=== PATIENT | female | born 1970 | race Caucasian/White ===

== ENCOUNTER → 2020-06-23 15:15 | Outpatient (BNVA) | payer MEDICAID, SELFPAY | PROVIDERS: Family Provider Family Medicine; PCP Family Medicine; Referring Provider Orthopaedic Surgery; Visit Provider Orthopaedic Surgery | DX: Z11.59 Encounter for screening for other viral diseases (principal); Z01.818 Encounter for other preprocedural examination | CPT/HCPCS: 87635 ==

== ENCOUNTER → 2020-10-27 10:51 | Outpatient (BNVA) | payer MEDICAID, SELFPAY | PROVIDERS: Family Provider Family Medicine; PCP Family Medicine; Visit Provider Specialist | DX: F44.4 Conversion disorder with motor symptom or deficit (principal); Z87.891 Personal history of nicotine dependence | CPT/HCPCS: 99205 ==

== ENCOUNTER 2020-11-16 10:23 | Outpatient (CLI) | payer MEDICAID, SELFPAY ==
--- NOTE | 2020-11-16 11:00 | MR_ITS ---
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 TECHNIQUE: Diffusion imaging, multiplanar T1, T2 and FLAIR imaging obtained. No hemorrhage or acute infarcts are identified. There are numerous T2 and FLAIR signal hyperintensiti es throughout the white matter, predominantly in a subcortical distribution bilaterally. More signal abnormalities than expected for a patient of this age with no involvement of the cerebellum or brains tem. No remote or acute infarcts are volume loss. Ventricles and extra-axial spaces are normal. No inferior displacement of cerebellar tonsils. The sella turcica and pituitary gland are unremarkabl e. Posterior fossa is also unremarkable. Dural venous sinuses and [place] of [place] demonstrate no abnormality on this unenhanced studies. Paranasal sinuses: Clear. Mastoid air cells: Small amount of fluid in the LEFT mastoid air cells. Calvarium and scalp: Intact. MR/MR head wo con* [id number] IMPRESSION: 1. No acute infarcts. 2. Extensive FLAIR and T2 signal subcortical white matter signal abnormalities . More than expected for a patient of this age. These signal abnormalities can be seen with advanced microvascular ischemic changes, hypertension, migraines, vasculitis or demyelinating disease.
--- NOTE | 2020-11-16 11:45 | MR_ITS ---
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 Quality of this examination is limited by mild motion artifact. Mild straightening of the normal cervical lordosis. Less than 2 mm anterolisthesis of C3 and C4. No m arrow edema or fracture. Signal within the cervical cord is normal. Visualized posterior fossa is unremarkable. Craniocervical junction, C1 and C2 relationship, odontoid process and soft tissues are normal. C2-C3: Normal. C3-C4: Mild annular disc bulging with a central disc protrusion. Bilateral foraminal osteophytes resu lting in mild bilateral foraminal stenosis, RIGHT greater than LEFT. C4-C5: Mild annular disc bulging with moderate central disc protrusion. LEFT foraminal disc osteophyt e disease resulting in mild stenosis. C5-C6: Mild annular disc bulging with a central disc protrusion. Minimal osteophytosis. Only mild oswaldo tral and foraminal narrowing. C6-C7: Mild annular disc bulging. Moderate LEFT paracentral and proximal foraminal disc osteophyte. T here is mild encroachment and deformity of the LEFT lateral thecal sac and cervical cord. Mild centra l LEFT foraminal stenosis. C7-T1: Small foraminal osteophytes without stenosis. Small indeterminate cervical chain lymph nodes. The largest lymph node along the RIGHT cervical chain with a maximum diameter of 10 mm. MR/MR cervical spin wo con* [id number] IMPRESSION: 1. Moderate LEFT paracentral and proximal foraminal disc osteophyte complex at C6-7 causing mild encroachment upon the cervical cord and LEFT foraminal steno sis. 2. Mild bilateral foraminal stenosis at C3-4 and on the LEFT at C4-5 due to di sc osteophyte disease. 3. Moderate central disc protrusion at C4-5 and small at C3-4. 4. Mild central and foraminal stenosis at C5-C6 due to disc osteophyte disease .
== END 2020-11-16 10:24 | disposition home or self-care (01) ==
LOC: RADSHAW 10:26
PROVIDERS: PCP Family Medicine; Visit Provider Specialist
DX: F44.4 Conversion disorder with motor symptom or deficit (principal); M25.78 Osteophyte, vertebrae; M48.02 Spinal stenosis, cervical region; M50.21 Other cervical disc displacement, high cervical region
CPT/HCPCS: 70551; 72141

== ENCOUNTER → 2021-01-29 09:21 | Outpatient (BNVA) | payer MEDICAID, SELFPAY | PROVIDERS: PCP Family Medicine; Visit Provider Counselor Professional | DX: F43.12 Post-traumatic stress disorder, chronic (principal) | CPT/HCPCS: 90832 ==

== ENCOUNTER → 2021-02-11 08:33 | Outpatient (BNVA) | payer MEDICAID, SELFPAY | PROVIDERS: PCP Family Medicine; Visit Provider Counselor Professional | DX: F43.12 Post-traumatic stress disorder, chronic (principal) | CPT/HCPCS: 90832 ==

== ENCOUNTER 2022-02-16 16:32 | Inpatient (IN) | payer MEDICAID, SELFPAY ==
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
--- NOTE | 2022-02-16 16:34 | XRR_ITS ---
PROCEDURE INFORMATION: Exam: XR Chest Exam date and time: 02/16/2022 3:42 PM Age: 51 years old Clinical indication: Shortness of breath; Additional info: Inhalation TECHNIQUE: Imaging protocol: XR of the chest. Views: 1 view. COMPARISON: CR Chest 2 views* [id number] 01/03/2019 11:51 AM FINDINGS: Lungs: Unremarkable. No consolidation. Pleural spaces: Unremarkable. No pleural effusion. No pneumothorax. Heart/Mediastinum: Cardiomegaly is identified. Bones/joints: Unremarkable. XR/XR chest 1V portable [id number] IMPRESSION: No acute findings.
--- NOTE | 2022-02-16 16:34 | ECG_ITS ---
[facility] Test Date: 2022-02-16 Pat Name: Cathy Ellington Department: Room: Gender: Female Food Sampler: : 1970 Requested By: Edenilson Ballesteros Order Number: [id number] Luis MD: Suzie Guerra M.D. Measurements Intervals Brethren Rate: 71 P: -20 NH: 152 QRS: -13 QRSD: 95 T: 141 QT: 412 QTc: 450 Interpretive Statements SINUS RHYTHM ST DEVIATION AND MODERATE T-WAVE ABNORMALITY, CONSIDER LATERAL ISCHEMIA [-0.1+ mV T-WAVE IN I/aVL/V5/V6] Compared to ECG 01/03/2019 12:28:04 T-wave abnormality now present Possible ischemia now present Electronically Signed On 02-16-2022 19:25:45 CDT by Suzie Guerra M.D. [id number]
[2022-02-16 16:40] VITALS: BP 215/105; PULSE 69; RESP 21; TEMP 36.6; O2SAT 94; BMI 23.6
[2022-02-16 17:00] LABS: ABG PCO2 37.9 mmHg (35-45); ABG PH Result 7.46 (7.35-7.45); Arterial Blood Gas Hematocrit 35.3 % (37-47); Base Excess ABG 3.4 mmol/L (-2.0-2.0); Blood Gas Allen Test Pos; Blood Gas Operator Identificat GD; Blood Gas Sample Site Radial, left; Blood Gas Sample Type Arterial; Carboxyhemoglobin 2.6 %THgb (0.4-20.1); HCO3 ABG 27.2 mmol/L (22-26); HGB O2 Sat 94.5 % (95-100); Ionized Calcium Level - ABG 1.1 mmol/L (1.1-1.4); Methemoglobin 0.7 % (0.4-1.5); Oxygen Device ROOM AIR; Oxygen Saturation ABG 97.7; Potassium Level - ABG 3.4 mmol/L (3.5-5.0); Total Hemoglobin 11.5 g/dL (12-16)
[2022-02-16 17:30] LABS: Basophils % 0.4 %; Eosinophils # 0.1 10^3/uL (0.0-0.8); Eosinophils % 1.7 %; Hematocrit 36.4 % (37.0-47.0); Hemoglobin 11.7 g/dL (11.5-15.3); Lymphocytes % 36.7 %; Mean Corpuscular HGB Conc 32.1 g/dL (30.0-36.0); Mean Corpuscular Hemoglobin 23.4 pg (28.0-34.0); Mean Corpuscular Volume 72.8 fl (81-99); Mean Platelet Volume 8.7 fL (7.4-10.4); Monocytes # 0.2 10^3/uL (0.2-0.9); Monocytes % 4.3 %; Neutrophils # 3.03 10^3/uL (1.8-7.7); Neutrophils % 56.7 %; Nucleated Red Blood Cells % 0 %; Platelet Count 360 10^3/cmm (130-400); Red Cell Distribution Width 15.3 % (12.1-15.1); White Blood Count 5.3 10^3/uL (4.0-10.0)
[2022-02-16 17:34] VITALS: BP 192/117; PULSE 60; RESP 20; O2SAT 98
[2022-02-16] MEDS: petrolatum oint Pkt 5 gm 1 APPLIC TOPICAL (17:39)
[2022-02-16] MEDS: ibuprofen 600 mg Tablet PO (17:42)
[2022-02-16] MEDS: hyDRALAzine 25 mg Tablet PO (17:42)
[2022-02-16] MEDS: nicotine 21 mg Patch 1 PATCH TRANSDERMA (18:56)
[2022-02-16 18:58] VITALS: BP 153/96; PULSE 80; RESP 20; O2SAT 97
[2022-02-16 19:14] LABS: Alanine Aminotransferase 10 U/L (0-33); Albumin Level 3.9 g/dL (3.5-5.2); Alkaline Phosphatase 158 IU/L (35-105); Anion Gap 13.5 (5-19); Aspartate Amino Transferase 14 U/L (0-32); Blood Urea Nitrogen 6 mg/dL (6-20); Calcium 9.1 mg/dL (8.5-10.5); Carbon Dioxide 26 mmol/L (22-29); Chloride 93 mmol/L (98-107); Globulin 2.6 g/dL (1.3-4.6); Glomerular Filtration Rate 129.1 mL/min (90-130); Glucose 134 mg/dL (65-115); Osmolality Calculated 268 mOsm/kg (285-295); Potassium 3.5 mmol/L (3.5-5.1); Salicylate 0.6 mg/dL (3-10); Sodium 129 mmol/L (136-145); Thyroid Stimulating Hormone 0.85 uIU/mL (0.27-4.20); Total Bilirubin 0.2 mg/dL (0.15-1.2); Total Protein 6.5 g/dL (6.6-8.7)
[2022-02-16 19:20] LABS: Acetaminophen < 5.0 ug/mL (10-30); Alcohol Level < 10 mg/dL (0-10)
[2022-02-16 19:45] VITALS: BP 158/96; PULSE 89; RESP 16; O2SAT 96
[2022-02-16 20:19] VITALS: BP 154/102; PULSE 86; RESP 20; O2SAT 96
[2022-02-16] MEDS: LORazepam 1 mg Tablet PO (20:23)
[2022-02-16 20:25] LABS: HCG Qualitative Urine. Negative (Negative)
[2022-02-16 20:31] VITALS: BP 172/104; PULSE 81; RESP 20; TEMP 36.9; O2SAT 99
[2022-02-16 20:33] LABS: Amphetamines Screen Urine Positive (Negative); Barbiturates Screen Urine Positive (Negative); Benzodiazepines Screen Urine Negative (Negative); Cocaine Screen Urine Negative (Negative); Opiate Screen Urine Negative (Negative); PCP Screen Urine Negative (Negative); THC Screen Urine Negative (Negative)
[2022-02-16] MEDS: zolpidem 5 mg Tablet 10 MG PO (21:56)
[2022-02-16] MEDS: sertraline 50 mg Tablet PO (21:56)
[2022-02-16] MEDS: acetaminophen 325 mg Tablet 650 MG PO (21:56)
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
[2022-02-17 06:00] VITALS: BP 166/101; PULSE 90; RESP 20; TEMP 36.7; O2SAT 98
[2022-02-17] MEDS: acetaminophen 325 mg Tablet 650 MG PO ×2 (06:22→13:48)
[2022-02-17] MEDS: gabapentin 300 mg Capsule 600 MG PO ×2 (08:32→18:26)
--- NOTE | 2022-02-17 12:02 | NPU.GN ---
[facility] Group Topic:Whine Barrel Activity General Mood of Group: Cathy did not attend group today. Cathy did meet with CSS and discuss [facility] services. CSS aided client in completing the [facility] paperwork.
[2022-02-17] MEDS: OLANZapine 5 mg ODT PO (13:03)
--- NOTE | 2022-02-17 13:51 | PC.NURSE ---
Tylenol 650 mg po given for c/o headache.
[2022-02-17 14:00] VITALS: BP 175/82; PULSE 76; RESP 18; TEMP 36.5; O2SAT 99
[2022-02-17] MEDS: nicotine 21 mg Patch 1 PATCH TRANSDERMA (14:32)
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
--- NOTE | 2022-02-17 16:09 | PC.NURSE ---
PRN Medications Anxiety observed and patient yelling/screaming, I want my oxycodone now. Attempted to redirect verbally, this RN offered Tylenol and declines. Continues to yell, My brain is going to pop out my head. This RN offered something for anxiety and patient agrees. Zydis 5 mg given SL at 1303 as ordered for anxiety. Minimal effectiveness in noted. Continues to c/o head pain. This RN again offered Tylenol. Tylenol given as ordered at 1348. Reassessed 45 minutes later and reports lilttle relief. States she willl have her bring in a copy of her meds or have her pharmacy fax it to NPU.
[2022-02-17] MEDS: petrolatum oint Pkt 5 gm 1 APPLIC TOPICAL (16:16)
--- NOTE | 2022-02-17 16:16 | PC.NURSE ---
PRN Medication Patient request medication to put on chemical bailon. This RN administered Vaseline as ordered to chemical bailon.
[2022-02-17 17:24] VITALS: RESP 22
[2022-02-17] MEDS: oxyCODONE 5 mg IR Tab/Cap 20 MG PO (17:24)
[2022-02-17] MEDS: ondansetron 4 MG Tablet PO (17:29)
[2022-02-17] MEDS: haloperidol 5 mg Tablet PO (17:53)
[2022-02-17] MEDS: hyDROXYzine 25 mg Capsule 50 MG PO (17:53)
--- NOTE | 2022-02-17 18:19 | PC.NURSE ---
PRN Medication C/O pain in head, rating it 8/10. New orders received for oxycodone 20 mg. Administered oxycodone as ordered at 1724. When this nurse gave patient medications she began to state she nauseated and was going to throw up. Reviewed chart and found PRN available. Administered Zofran 4 mg as ordered for nausea at 1729. Reassessed at 1820 and patient reports both medications were effective, then reported increased anxiety. Haldol 5 mg and Vistaril 50 MG administered at 1753 as ordered for increased anxiety and increased crying. This RN observed decreased anxiety and effectiveness of PRN medications at m1824.
[2022-02-17] MEDS: sertraline 50 mg Tablet PO (20:16)
[2022-02-17] MEDS: zolpidem 5 mg Tablet 10 MG PO (20:16)
[2022-02-17 20:26] VITALS: BP 167/85; PULSE 70; RESP 20; O2SAT 97
[2022-02-18] VITALS (7 sets, daily range): BP systolic 137–179; BP diastolic 58–84; PULSE 68–81; RESP 16–20; TEMP 36.3–37; O2SAT 97–100
[2022-02-18] MEDS: oxyCODONE 5 mg IR Tab/Cap 20 MG PO ×3 (06:47→20:24)
[2022-02-18] MEDS: gabapentin 300 mg Capsule 600 MG PO ×2 (08:53→17:31)
[2022-02-18] MEDS: petrolatum oint Pkt 5 gm 1 APPLIC TOPICAL (08:53)
[2022-02-18] MEDS: nicotine 21 mg Patch 1 PATCH TRANSDERMA (10:52)
[2022-02-18] MEDS: ondansetron 4 MG Tablet PO (13:11)
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
[2022-02-18] MEDS: OLANZapine 5 mg ODT PO (19:16)
[2022-02-18] MEDS: sertraline 50 mg Tablet PO (20:24)
[2022-02-18] MEDS: zolpidem 5 mg Tablet 10 MG PO (20:24)
[2022-02-19 05:18] VITALS: RESP 17
[2022-02-19] MEDS: oxyCODONE 5 mg IR Tab/Cap 20 MG PO ×3 (05:18→19:46)
[2022-02-19 06:00] VITALS: BP 116/84; PULSE 78; RESP 18; TEMP 36.8; O2SAT 98
[2022-02-19] MEDS: gabapentin 300 mg Capsule 600 MG PO ×2 (08:19→17:29)
[2022-02-19] MEDS: nicotine 21 mg Patch 1 PATCH TRANSDERMA (10:20)
[2022-02-19] MEDS: hyDROXYzine 25 mg Capsule 50 MG PO (10:25)
--- NOTE | 2022-02-19 10:26 | PC.NURSE ---
Addendum entered by Rickey Echevarria RN 02/19/22 11:30: LATE ENTRY FOR 1100 PRN MED EFFECTIVE. PT HAS HAD NO FURTHER C/O ANXIETY AT THIS TIME. Original Note: PRN VISTARIL PRN VISTARIL 50 MG GIVEN PO PER PT C/O ANXIETY. PT RETURNED TO HER ROOM TO LIE DOWN AFTER MEDICATION ADMINISTRATION. WILL CONTINUE TO MONITOR FOR MEDICATION EFFECTIVENESS.
[2022-02-19 13:16] VITALS: RESP 16
[2022-02-19 14:00] VITALS: BP 138/79; PULSE 76; RESP 16; TEMP 36.6; O2SAT 96
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
[2022-02-19] MEDS: petrolatum oint Pkt 5 gm 1 APPLIC TOPICAL (18:58)
[2022-02-19 19:46] VITALS: RESP 16
[2022-02-19] MEDS: sertraline 50 mg Tablet PO (20:37)
[2022-02-19] MEDS: zolpidem 5 mg Tablet 10 MG PO (20:37)
[2022-02-19 21:55] VITALS: BP 143/72; PULSE 87; RESP 16; TEMP 37; O2SAT 97
[2022-02-20 06:45] VITALS: RESP 16
[2022-02-20] MEDS: oxyCODONE 5 mg IR Tab/Cap 20 MG PO ×3 (06:45→20:19)
[2022-02-20] MEDS: nicotine 21 mg Patch 1 PATCH TRANSDERMA (08:32)
[2022-02-20] MEDS: hyDROXYzine 25 mg Capsule 50 MG PO (08:32)
[2022-02-20] MEDS: gabapentin 300 mg Capsule 600 MG PO ×2 (08:32→20:19)
--- NOTE | 2022-02-20 08:34 | PC.NURSE ---
PRN VISTARIL 50 MG GIVEN PO PER PT C/O ANXIETY
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
--- NOTE | 2022-02-20 11:10 | PC.NURSE ---
Pt denies SI/HI. Inspiratory wheezes audible.
[2022-02-20] MEDS: acetaminophen 325 mg Tablet 650 MG PO (11:27)
[2022-02-20] MEDS: OLANZapine 5 mg ODT PO (12:09)
--- NOTE | 2022-02-20 12:11 | PC.NURSE ---
PRN ZYPREXA ZYDIS 5 MG GIVEN PO PER PT C/O AGITATION. PT YELLING AND CURSING ABOUT IT BEING TOO FUCKING LOUD UP IN HERE
[2022-02-20 14:00] VITALS: BP 143/94; PULSE 89; RESP 17; TEMP 36.6; O2SAT 99
[2022-02-20 14:17] VITALS: RESP 18
[2022-02-20 20:19] VITALS: RESP 18
[2022-02-20] MEDS: zolpidem 5 mg Tablet 10 MG PO (20:19)
[2022-02-20] MEDS: sertraline 50 mg Tablet PO (20:20)
[2022-02-20 20:22] VITALS: BP 160/82; PULSE 84; RESP 19; TEMP 36.3; O2SAT 100
[2022-02-21 02:26] VITALS: RESP 20
[2022-02-21] MEDS: oxyCODONE 5 mg IR Tab/Cap 20 MG PO ×2 (02:26→08:29)
[2022-02-21 06:00] VITALS: BP 154/86; PULSE 67; RESP 20; TEMP 36.9; O2SAT 99
[2022-02-21] MEDS: gabapentin 300 mg Capsule 600 MG PO (08:09)
[2022-02-21] MEDS: hyDROXYzine 25 mg Capsule 50 MG PO (08:10)
--- NOTE | 2022-02-21 08:10 | PC.NURSE ---
PRN VISTARIL 50 MG GIVEN PO PER PT C/O STATED ANXIETY
[2022-02-21 08:29] VITALS: RESP 17
[2022-02-21] MEDS: nicotine 21 mg Patch 1 PATCH TRANSDERMA (08:30)
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
[2022-02-21 12:58] VITALS: RESP 17
== END 2022-02-21 13:03 | disposition home or self-care (01) | DRG 914 ==
LOC: ER 19:26 → NP 20:04
PROVIDERS: Admitting Provider Psychiatry & Neurology Psychiatry; Emergency Provider Emergency Medicine; PCP Family Medicine; Visit Provider Psychiatry & Neurology Psychiatry
DX: T14.91XA Suicide attempt, initial encounter (principal); T52.0X2A Toxic effect of petroleum products, intentional self-harm, initial encounter; R20.8 Other disturbances of skin sensation; Y92.9 Unspecified place or not applicable; F32.A Depression, unspecified; I10 Essential (primary) hypertension; G31.84 Mild cognitive impairment of uncertain or unknown etiology; F43.12 Post-traumatic stress disorder, chronic; F17.210 Nicotine dependence, cigarettes, uncomplicated; E86.0 Dehydration; F41.9 Anxiety disorder, unspecified; Z81.8 Family history of other mental and behavioral disorders
CPT/HCPCS: 36415; 36600; 71045; 80051; 80053; 80306; 80307; 81025; 82330; 82805; 84443; 85025; 93005; 97150; 97165; 99285; Q0162

== ENCOUNTER → 2023-01-11 14:39 | Outpatient (BNVA) | payer MEDICAID, SELFPAY | PROVIDERS: PCP Family Medicine; Visit Provider Nurse Practitioner Family | DX: M25.521 Pain in right elbow (principal) | CPT/HCPCS: 73080 ==